=== PATIENT | male | born 1985 | race Caucasian/White ===

== ENCOUNTER 2017-04-28 15:48 | Emergency (ER) | payer OTHER ==
[~2017-04-28] VITALS: Ht 182.9 cm; Wt 104.3 kg
[2017-04-28] MEDS ORDERED: IBUPROFEN 600 MG TABLET PO ONE (16:15)
[2017-04-28] MEDS ORDERED: IV NORMAL SALINE 1000 ML BAG IV ONE (16:15)
[2017-04-28] MEDS ORDERED: CEFTRIAXONE 1 G in IV DEXTROSE 5% 50 ML IV ONE (16:15)
[2017-04-28] MEDS ORDERED: VANCOMYCIN IV 1,000 MG in IV DEXTROSE 5% 250 ML IV ONE (16:15)
[2017-04-28] MEDS ORDERED: ACETAMINOPHEN ES 500 MG TABLET PO ONE (16:15)
--- NOTE | 2017-04-28 16:38 | NUR ---
PT ELOPED AFTER TALKING TO ER MD MARY. PT STATED HE NEEDS TO TAKE SOMETHING FROMHIS CAR AND DID NOT CAME BACK. DR MARY NOTIFIED. REPORTING DEVELOPER NOTIFIED.
--- NOTE | 2017-04-28 17:03 | NUR ---
PT DID NOT CAME BACK. DR MARY NOTIFIED.
[2017-04-28] MEDS ORDERED: CEPH-570 PO (17:20)
== END 2017-04-28 17:06 | disposition left against medical advice (07) ==
LOC: ER 15:52
DX: A41.9 Sepsis, unspecified organism (principal); Z79.899 Other long term (current) drug therapy
CPT/HCPCS: 36415; 86850; 86900; 86901; 93005; 99285; A4663

== ENCOUNTER 2017-04-28 17:08 | Emergency (ER) | payer OTHER ==
[~2017-04-28] VITALS: Ht 182.9 cm; Wt 102.1 kg
[2017-04-28] MEDS ORDERED: HYDROCODONE/APAP 5-325MG TABLET PO ONE (17:15)
--- NOTE | 2017-04-28 17:15 | NUR ---
PT RETURNED TO ER. SEPSIS CODE WAS CALLED BY DR MARY. SEPSIS PROTOCOL STARTED.
[2017-04-28] MEDS ORDERED: CEPH-570 PO (17:20)
--- NOTE | 2017-04-28 17:24 | NUR ---
PT ELOPED BEFORE AND CAME BACK NOW. DR MARY TALKED TO THE PT. PT AGREED TO STAY IN ER FOR FULL EVALUATION.
[2017-04-28] MEDS ORDERED: LORAZEPAM 2 MG/1 ML VIAL IM ONE (17:30)
[2017-04-28] MEDS ORDERED: CEFTRIAXONE 1 G in IV DEXTROSE 5% 50 ML IV ONE (17:30)
[2017-04-28] MEDS ORDERED: VANCOMYCIN IV 1,000 MG in IV DEXTROSE 5% 250 ML IV ONE (17:30)
[2017-04-28] MEDS ORDERED: HALOPERIDOL LACTATE 5 MG/1 ML VIAL IM ONE (17:30)
[2017-04-28] MEDS ORDERED: IV NORMAL SALINE 1000 ML BAG IV ONE (17:30)
[2017-04-28] MEDS ORDERED: HALOPERIDOL LACTATE 5 MG/1 ML VIAL ONE (17:42)
[2017-04-28] MEDS ORDERED: CEFTRIAXONE 1 G VIAL ONE (17:43)
[2017-04-28] MEDS ORDERED: LORAZEPAM 2 MG/1 ML VIAL ONE (17:43)
[2017-04-28] MEDS ORDERED: VANCOMYCIN IV 0 ML ONE (17:44)
[2017-04-28 17:59] LABS: BASOPHILS # (AUTO) 0.1 K/uL (0.0-8.0); BASOPHILS % (AUTO) 0.6 % (0.0-2.0); EOSINOPHILS # (AUTO) 0.1 K/uL (0.0-0.7); EOSINOPHILS % (AUTO) 0.8 % (0.0-7.0); HEMATOCRIT 34.5 % (40-50); HEMOGLOBIN 11.4 G/DL (14.0-18.0); LYMPHOCYTES # (AUTO) 2.9 K/UL (0.8-4.8); LYMPHOCYTES % (AUTO) 15.9 % (20.5-51.5); MEAN CORPUSCULAR HEMOGLOBIN 27.9 UUG (27.0-31.0); MEAN CORPUSCULAR HGB CONC 33 g/dL (32.0-37.0); MEAN CORPUSCULAR VOLUME 84.6 FL (82.0-92.0); MONOCYTES # (AUTO) 1.4 K/UL (0.1-1.30); NEUTROPHILS # (AUTO) 13.5 K/UL (1.8-8.9); NEUTROPHILS % (AUTO) 74.7 % (38.5-71.5); PLATELET COUNT (AUTO) 375 K/UL (150-450); RED BLOOD CELL COUNT(AUTO) 4.08 MIL/UL (4.7-6.1)
--- NOTE | 2017-04-28 18:00 | NUR ---
AFTER BLOOD DROVE PT BECOME AGITATED. DR MARY TALKED TO PT AGAIN. PT REFUSED TREATMENT AGAIN AND LEFT HOSPITAL AMA. DR MARY EXPLAINED ALL RISKS OF LEAVING HOSPITAL AMA TO THE PT. PT WERBALISED FULL UNDERSTANDING. PT REFUSED TO SIGN AMA FORM.
[2017-04-28 18:01] LABS: POTASSIUM 4.2 mmol/L (3.5-5.1)
[2017-04-28 18:08] LABS: BILIRUBIN,DIRECT 0.1 mg/dL (0.0-0.2); BILIRUBIN,TOTAL 0.5 mg/dL (0.2-1.0); TOTAL PROTEIN, SERUM 8.1 g/dL (6.4-8.2)
[2017-04-28 18:16] LABS: BAND % (MANUAL) 3 % (0-10); LYMPHOCYTES % (MANUAL) 17 % (20-40); MONOCYTES % (MANUAL) 7 % (2-10); NEUTROPHILS % (MANUAL) 73 % (42-75)
[2017-04-28 18:21] VITALS: BP 128/74
== END 2017-04-28 18:22 | disposition left against medical advice (07) ==
LOC: ER 17:10
DX: L02.11 Cutaneous abscess of neck (principal); A41.9 Sepsis, unspecified organism; F10.20 Alcohol dependence, uncomplicated; F17.200 Nicotine dependence, unspecified, uncomplicated; F19.10 Other psychoactive substance abuse, uncomplicated; Z53.20 Procedure and treatment not carried out because of patient's decision for unspecified reasons
CPT/HCPCS: 36415; 70030-TC; 83605; 85025; 85730; 87040; 93005; A4663; J0696; J1630; J2060; J3370; J3490; J7030

== ENCOUNTER 2019-05-24 02:15 | Emergency (ER) | payer MEDICAID, OTHER ==
[~2019-05-24] VITALS: Ht 190.5 cm; Wt 98.9 kg
[~2019-05-24 02:15] MED LIST: CEPH-570 PO
--- NOTE | 2019-05-24 02:46 | NUR ---
Patient ambulated with stable gait. Speech clear, speaks in complete sentences. No neuro deficits. Patient came for c/o LFA abscess that popped x1 day ago. Patient just wanted his arm evaluated by an MD. Respiratory even and unlabored, no cough no sob. Patient is afebrile. No cardiovascular distress noted. No GI/ distress noted.
[2019-05-24] MEDS ORDERED: SULFAMETH/TRIMETH 800/160 MG TABLET PO ONE (03:00)
[2019-05-24] MEDS ORDERED: NEOMY/BACITRA/POLYMYXIN B OINT UD PACKET TP ONE ×2 (03:00→03:03)
[2019-05-24] MEDS ORDERED: SULFAMETH/TRIMETH 800/160 MG TABLET ONE ×2 (03:03→03:15)
--- NOTE | 2019-05-24 03:15 | NUR ---
Patient given written and verbal discharge instructions. Patient verbalizes understanding of instructions. Patient is ambulatory with steady gait. Refuses offer of senior living placement. Patient given list of available shelters in surrounding area.
== END 2019-05-24 03:23 | disposition home or self-care (01) ==
LOC: ER 02:22
DX: L03.114 Cellulitis of left upper limb (principal); L98.499 Non-pressure chronic ulcer of skin of other sites with unspecified severity; F17.200 Nicotine dependence, unspecified, uncomplicated; Z59.0 Homelessness; Z79.899 Other long term (current) drug therapy
CPT/HCPCS: A4663